=== PATIENT | male | born 1980 | race Caucasian/White ===

== ENCOUNTER → 2016-05-20 | Outpatient (CLI) | payer OTHER ==
--- NOTE | 2016-05-20 13:37 | DI ---
Indication: ITS.REASON: DX TESTING KNEE LEFT 2 VIEW Comparison: None Findings: There is no acute fracture, dislocation or malalignment identified. Incidentally noted is mild hypertrophic change at the insertion of the tibial tendon into the tuberosity. This did not have the appearance of an acute avulsion injury. Impression: No acute osseous abnormality. .
== END ==
LOC: IMA 12:50 → EDBD 12:50
DX: Z02.89 Encounter for other administrative examinations (principal)